=== PATIENT | female | born 1970 | race Caucasian/White ===

== ENCOUNTER 2023-04-07 13:11 | Emergency (ER) | payer OTHER ==
[~2023-04-07] VITALS: Ht 167.6 cm; Wt 75.7 kg
[2023-04-07 16:50] LABS: HEMATOCRIT 40.2 % (36.0-45.00); HEMOGLOBIN 13.5 g/dL (12.0-15.00); MEAN CELL VOLUME 86.8 fL (80.00-100.00); MEAN CORPUSCULAR HEMOGLOBIN 29.1 pg (27.00-32.0); MEAN CORPUSCULAR HGB CONC 33.5 g/dl (32.0-36.0); PLATELET COUNT 264 K/uL (150-450); RED BLOOD COUNT 4.63 M/uL (4.00-6.00)
[2023-04-07 17:34] LABS: ALBUMIN 4.1 gm/dL (3.4-5.0); BILIRUBIN TOTAL 0.3 mg/dL (0.3-1.2); CALCIUM 9.4 mg/dL (8.5-10.1); CREATININE SERUM 0.91 mg/dL (0.55-1.02); GFR 65.17; GLOBULINA 3.2 G/DL (2.4-3.5); POTASSIUM 4.23 mEq/L (3.5-5.1); TOTAL PROTEIN 7.3 gm/dL (6.4-8.2)
== END 2023-04-07 18:02 | disposition home or self-care (01) ==
LOC: ER 13:11
PROVIDERS: General Practice
DX: R53.81 Other malaise (principal); R42 Dizziness and giddiness